=== PATIENT | male | born 1980 | race Caucasian/White ===

== ENCOUNTER 2016-12-08 06:48 | Emergency (ER) | payer MEDICAID, OTHER ==
[~2016-12-08] VITALS: Ht 188 cm; Wt 110.0 kg
[2016-12-08] MEDS ORDERED: METHOCARBAMOL 750 MG TABLET PO ONE (07:00)
[2016-12-08] MEDS ORDERED: SODIUM CHLORIDE FLUSH 10ML SYR IVF ONE (07:00)
[2016-12-08] MEDS ORDERED: KETOROLAC 30 MG/1 ML IVPush ONE (07:00)
[2016-12-08] MEDS ORDERED: METHOCARBAMOL 750 MG TABLET ONE ×2 (07:14)
[2016-12-08 07:22] VITALS: BP 130/82
== END 2016-12-08 08:07 | disposition home or self-care (01) ==
LOC: ED 07:17
DX: S39.012A Strain of muscle, fascia and tendon of lower back, initial encounter (principal); W50.2XXA Accidental twist by another person, initial encounter; Y93.89 Activity, other specified; Y92.89 Other specified places as the place of occurrence of the external cause; Y99.8 Other external cause status
CPT/HCPCS: 99283

== ENCOUNTER 2017-10-05 13:24 | Emergency (ER) | payer MEDICAID ==
[~2017-10-05] VITALS: Ht 185.4 cm; Wt 103.4 kg
[2017-10-05 14:42] VITALS: BP 128/79
[2017-10-05] MEDS ORDERED: AMOXICILLIN/CLAV 875-125MG TABLET ONE (14:44)
[2017-10-05] MEDS ORDERED: AMOXICILLIN/CLAV 875-125MG TABLET PO ONE (15:00)
== END 2017-10-05 15:23 | disposition home or self-care (01) ==
LOC: ED 15:21
DX: K13.0 Diseases of lips (principal)
CPT/HCPCS: 99283